=== PATIENT | male | born 1985 | race Two or more races ===

== ENCOUNTER 2019-04-23 23:03 | Emergency (ER) | payer BC, OTHER ==
[~2019-04-23] VITALS: Ht 180.3 cm; Wt 95.5 kg
[2019-04-23] MEDS ORDERED: KETOROLAC 30 MG/1 ML ONE (23:59)
[2019-04-24] MEDS ORDERED: KETOROLAC 30 MG/1 ML IM ONE
--- NOTE | 2019-04-24 00:03 | NUR ---
PT MEDICATED PER MAR FOR PAIN. PT TO XRAY AT THIS TIME.
--- NOTE | 2019-04-24 00:10 | NUR ---
AILYN RN: PT IS AT RADIOLOGY
--- NOTE | 2019-04-24 00:54 | NUR ---
PT RESTING COMFORTABLY IN RLEVANT AT THIS TIME; NADN. PT REPORTS RELIEF FROM MEDICATION. AWAITING DISPOSITION OF PT AT THIS TIME.
[2019-04-24 01:26] VITALS: BP 107/67
== END 2019-04-24 01:28 | disposition home or self-care (01) ==
LOC: ED 04-24 00:37
DX: G89.11 Acute pain due to trauma (principal); M43.16 Spondylolisthesis, lumbar region; M43.14 Spondylolisthesis, thoracic region; M54.5 Low back pain; V49.49XA Driver injured in collision with other motor vehicles in traffic accident, initial encounter; Y93.89 Activity, other specified; Y92.89 Other specified places as the place of occurrence of the external cause; Y99.8 Other external cause status
CPT/HCPCS: 72072; 72110; 96372; 99283; J1885